=== PATIENT | male | born 1995 | race African-American/Black ===

== ENCOUNTER 2023-12-27 00:14 | Emergency (ER) | payer SELFPAY ==
[2023-12-27] MEDS ORDERED: Lidocaine 1% (PF) 30 ML VIAL ONE (00:35)
[2023-12-27] MEDS ORDERED: cefTRIAXone (ROCEPHIN) 1 GM VIAL ONE (01:46)
== END 2023-12-27 02:17 | disposition home or self-care (01) ==
LOC: MADERS 00:14
DX: S61.210A Laceration without foreign body of right index finger without damage to nail, initial encounter (principal); S61.011A Laceration without foreign body of right thumb without damage to nail, initial encounter; S66.921A Laceration of unspecified muscle, fascia and tendon at wrist and hand level, right hand, initial encounter; F17.210 Nicotine dependence, cigarettes, uncomplicated; W26.8XXA Contact with other sharp object(s), not elsewhere classified, initial encounter
CPT/HCPCS: 12001; 26670; 96372; J0696; J2001

== ENCOUNTER 2024-06-05 01:00 | Emergency (ER) | payer BC, SELFPAY ==
[2024-06-05] MEDS ORDERED: Amoxicillin/Potassium Clav 875 MG TAB ONE (01:22)
[2024-06-05] MEDS ORDERED: Ibuprofen 800 MG TAB ONE (01:22)
== END 2024-06-05 01:35 | disposition home or self-care (01) ==
LOC: MADERS 01:00
DX: K08.89 Other specified disorders of teeth and supporting structures (principal); F17.210 Nicotine dependence, cigarettes, uncomplicated
CPT/HCPCS: 99282

== ENCOUNTER 2024-07-20 18:58 | Emergency (ER) | payer SELFPAY | END 2024-07-20 19:55 | disposition home or self-care (01) | LOC: MADERS 18:58 | DX: K08.89 Other specified disorders of teeth and supporting structures (principal); F17.290 Nicotine dependence, other tobacco product, uncomplicated; V89.0XXA Person injured in unspecified motor-vehicle accident, nontraffic, initial encounter; Z55.6 Problems related to health literacy | CPT/HCPCS: 99282 ==